=== PATIENT | male | born 1945 | race Caucasian/White ===

== ENCOUNTER 2022-03-10 11:18 | Outpatient (CLI) | payer MEDICARE, OTHER, SELFPAY ==
--- OUTSIDE RECORDS SUMMARY | 2022-03-10 11:25 | XMS_ITS ---
Care Plan - [facility] Created on:March 10, 2022 Patient:Theodore Clemons Sex:Male :1945 Author Organization [facility] Address [address] [place] [phone] Phone Care Team Providers Name Role Phone Caitlin Tai M.D. Unavailable [phone]
--- OUTSIDE RECORDS SUMMARY | 2022-03-10 11:25 | XMS_ITS ---
:1945 Author Organization [facility] Address [address] [place] [phone] Phone Care Team Providers Name Role Phone Caitlin Tai M.D. Unavailable [phone] Plan of Treatment No Plan of Treatment Recorded Assessments Includes: Assessments for all patient encountersNo Assessments Recorded Medical Equipment - Implanted Devices Includes: Current and historical DevicesNo Medical Equipment Recorded Medications Administered Includes: Administered Medications in patient's chartNo Administered Medications Recorded Results Includes: Results from 03/10/2021 through 03/10/2022No Results Recorded For Specified Dates History of Present Illness History of Present Illness not supported for this document typeNo History of Present Illness Recorded Social History No Social History Recorded - Smoking Status Unknown Medical History Includes: Medical History in patient's chartNo Medical History Recorded Family History Includes: Family History in patient's chartNo Family History Recorded Review of Systems Review of Systems not supported for this document typeNo Review of Systems Recorded Mental Status No Mental Status Recorded Functional Status No Functional Status Recorded Physical Exam Physical Exam not supported for this document typeNo Physical Exam Recorded Insurance Includes: Active Insurance Policies Plan Name Member ID Group # Subscriber Relationship Effective Da em 1 - MEDICARE PART B [id number] Theodore Shabazz 2 - [employer]/[id number] Theodore Clemons Self Clinical Notes Includes: Signed Clinical Notes starting from 11/01/2021No Clinical Notes Recorded
--- OUTSIDE RECORDS SUMMARY | 2022-03-10 11:25 | XMS_ITS | Clinical Summary ---
:1945 Author Organization [facility] Address [address] [place] [phone] Phone Care Team Providers Name Role Phone Caitlin Tai M.D. Unavailable [phone] Reason for Visit and Chief Complaint Vasc Study Only Plan of Treatment No Plan of Treatment Recorded Assessments Includes: Assessments from this encounterNo Assessments Recorded Medical Equipment - Implanted Devices Includes: Current DevicesNo Medical Equipment Recorded Medications Administered Includes: Administered Medications from this encounterNo Administered Medications Recorded Results Includes: Results discussed during this encounterNo Results Recorded For Specified Dates History of Present Illness Includes: History of Present Illness from this encounterNo History of Present Illness Recorded Social History No Social History Recorded - Smoking Status Unknown Medical History Includes: Medical History addressed during this encounterNo Medical History Recorded Family History Includes: Family History addressed during this encounterNo Family History Recorded Review of Systems Includes: Review of Systems from this encounterNo Review of Systems Recorded Mental Status Includes: Mental Status from this encounterNo Mental Status Recorded Functional Status Includes: Functional Status from this encounterNo Functional Status Recorded Physical Exam Includes: Physical Exam from this encounterNo Physical Exam Recorded Encounters Encounter Provider Location Date Check-In Time Check-Out Time D iagnosis Vasc Study Only [place] 7:57AM 8:18AM [facility] Insurance Includes: Active Insurance Policies Plan Name Member ID Group # Subscriber Relationship Effective Da em 1 - MEDICARE PART B [id number] Theodore Deonte Self 2 - [employer]/[id number] Theodore Clemons Self Clinical Notes Includes: Clinical Notes from this encounterNo Clinical Notes Recorded
== END 2022-03-10 11:19 | disposition home or self-care (01) ==
LOC: MRI 11:23
PROVIDERS: PCP Family Medicine; Visit Provider Internal Medicine
DX: C61 Malignant neoplasm of prostate (principal)
CPT/HCPCS: 72195

== ENCOUNTER 2022-09-29 14:00 | Outpatient (RCR) | payer MEDICARE, OTHER, SELFPAY ==
--- NOTE | 2022-04-03 09:52 | URNOTE ---
Request received for authorization for?Leuprolide (Elistephd) ([id number]). Prior authorization is not required as services are based on medical necessity and follow Medicare guidelines.
[2022-04-09 11:30] VITALS: BP 144/89; PULSE 66; TEMP 36.4; O2SAT 97
[2022-07-07 13:02] LABS: PSA Diagnostic* < 0.06 ng/mL (0.10-4.00)
[2022-07-08 21:34] LABS: Testosterone, Adult Male <3 ng/dL (300-720)
--- NOTE | 2022-09-29 08:41 | ONC.NURNOTE ---
Patient to come in for 30mg Eligard injection REBEKAH. Was due on [id number] for a a reduced dose. Last given 6 month dose on (45mg) and due to SE Dr. Youssef has reduced to dose. New order received from Dr. youssef and order faxed to pharmacy but unable to get a hold of patient. Message left on patient's voicemail to call [facility] to schedule REBEKAH.
[2022-09-29 14:08] VITALS: BP 136/77; PULSE 68; RESP 16; TEMP 36.2; O2SAT 98
== END 2022-10-06 23:59 | disposition home or self-care (01) ==
LOC: CCIC 14:00
PROVIDERS: PCP Family Medicine; Referring Provider Family Medicine; Visit Provider Internal Medicine
DX: C61 Malignant neoplasm of prostate (principal)
CPT/HCPCS: 36415; 84153; 84403; 96401; J9217

== ENCOUNTER 2023-01-19 11:33 | Outpatient (RCR) | payer MEDICARE, OTHER, SELFPAY ==
[2023-01-19 12:01] VITALS: BP 143/89; PULSE 66; RESP 16; TEMP 35.8; O2SAT 97
[2023-01-19] MEDS: LEUPROLIDE ACETATE 22.5 MG (SQ) SYRINGE SUBCUT (12:24)
== END 2023-07-18 23:59 | disposition home or self-care (01) ==
LOC: CCIC 11:33
PROVIDERS: PCP Family Medicine; Referring Provider Family Medicine; Visit Provider Internal Medicine
DX: C61 Malignant neoplasm of prostate (principal)
CPT/HCPCS: 96401; J9217

== ENCOUNTER 2024-10-05 11:00 | Outpatient (RCR) | payer MEDICARE, OTHER, SELFPAY | END 2025-02-02 23:59 | disposition home or self-care (01) | PROVIDERS: PCP Family Medicine; Visit Provider Physician Assistant | DX: C61 Malignant neoplasm of prostate (principal); Z51.89 Encounter for other specified aftercare | CPT/HCPCS: 97110; 97162; 97530; 97535 ==